=== PATIENT | male | born 1990 | race Caucasian/White ===

== ENCOUNTER 2018-02-17 16:44 | Emergency (ER) | payer SELFPAY ==
[~2018-02-17] VITALS: Ht 188 cm; Wt 861.8 kg
[2018-02-17] MEDS ORDERED: ASPIRIN325 MG PO (17:03)
== END 2018-02-17 16:55 | disposition home or self-care (01) ==
LOC: ED 16:44
DX: K08.89 Other specified disorders of teeth and supporting structures (principal)